=== PATIENT | male | born 1945 ===

== ENCOUNTER → 2019-07-12 11:05 | Outpatient (CLI) | payer MEDICARE, SELFPAY ==
--- NOTE | 2019-07-12 | DI.MRI.S_ITS ---
PROCEDURE: MR CERVICAL SPINE WO CON INDICATIONS: Cervicalgia TECHNIQUE: Noncontrast sagittal T1 spin echo and T2 fast spin echo, sagittal STIR, foraminal oblique sagittal T2 fast spin echo, and axial gradient echo or T2 fast spin echo through the cervical spine. COMPARISON: None. FINDINGS: Image quality: Excellent. Alignment and Curvature: Straightening of the normal lordotic curvature. Bone Marrow: No acute fracture identified. Multilevel degenerative endplate sclerosis and spurring. Diffuse facet arthropathy. Spinal Cord: Mild T2 hyperintensity involving the cord at the level of C3-C4 which is probably degenerative/chronic myelomalacia given the appearance described below No cerebellar tonsillar herniation. Paraspinous Soft Tissues: No paravertebral masses. Prevertebral soft tissues are normal in thickness. C2-C3: Mild central canal narrowing. Mild right foraminal stenosis. Severe left foraminal narrowing with nerve root compression. C3-C4: Severe central canal stenosis. Severe bilateral foraminal narrowing with nerve root compression. C4-C5: Moderate to severe central canal narrowing. Severe bilateral foraminal stenosis with nerve root compression C5-C6: Mild central canal narrowing. Severe right foraminal stenosis or nerve root compression. On the moderate left foraminal narrowing C6-C7: Mild central canal narrowing. Severe right foraminal stenosis with nerve root compression. Mild left foraminal narrowing C7-T1: Mild central canal narrowing. Severe right foraminal stenosis with nerve root compression. Mild-moderate left foraminal narrowing with slight nerve root compression IMPRESSION: Severe cervical spondylosis and facet arthropathy. Straightening of the normal lordotic curvature. Severe C3-C4 canal stenosis Numerous, bilateral foraminal stenoses as detailed above by spinal level Dictated by: Alex Castillo M.D. on 07/12/2019 at 12:23 Approved by: Alex Castillo M.D. on 07/12/2019 at 12:30
== END ==
PROVIDERS: Visit Provider Orthopaedic Surgery
DX: M54.2 Cervicalgia (principal); M48.02 Spinal stenosis, cervical region; M47.812 Spondylosis without myelopathy or radiculopathy, cervical region
CPT/HCPCS: 72141

== ENCOUNTER → 2019-09-18 08:17 | Outpatient (CLI) | payer MEDICARE, SELFPAY ==
--- NOTE | 2019-09-18 | DI.MRI.S_ITS ---
PROCEDURE: MR LUMBAR SPINE WO/W CON INDICATIONS: Spinal stenosis, lumbar region TECHNIQUE: Noncontrast sagittal T1 spin echo and T2 fast spin echo, sagittal STIR, axial T1 and T2 fast spin echo through the lumbar spine. In cases with scoliosis, additional coronal T2 fast spin echo may be performed. After the administration of contrast, sagittal and axial T1 spin echo with fat saturation through the lumbar spine. COMPARISON: None. FINDINGS: Image quality: Diagnostic, with note made of motion artifact. Alignment and curvature: There is moderate levoconvex lumbar scoliosis. Marrow: Marrow is of normal overall signal. Remote appearing compression deformities are seen at T11, L1, and L5. Vertebroplasty cement can be seen within the left aspect of the L1 and L5 vertebral bodies. No acute vertebral body compression fractures. No suspicious marrow enhancement. Spinal cord: Conus medullaris terminates at the L1 level. Visualized spinal cord demonstrates normal signal, without suspicious enhancement. Paraspinous soft tissues: No paravertebral masses or abnormal enhancement. A mild degree of postoperative fluid can be seen within the postoperative bed. To the limits of this study, no abnormal rim enhancement is seen to suggest abscess. Extensive postoperative changes are seen, with bilateral pedicle screws at the L2-L4 levels. Vertical fixation rods are seen. Disc spacers are seen at L2-L3 and L3-L4. There is associated susceptibility artifact. There has been removal of portions of the posterior elements. T12-L1: The disc height is well-preserved. Loss of disc signal is seen at this level. Bridging endplate osteophytes are seen. Moderate generalized disc bulge is seen. Mild facet joint hypertrophy is seen. There is moderate right-sided and no significant left-sided neural foraminal narrowing seen. No significant central canal narrowing is seen. L1-L2: The disc height is well-preserved. Loss of disc signal is seen at this level. Mild to moderate disc bulge is seen. Moderate facet joint hypertrophy is seen. There is moderate to severe right-sided and moderate left-sided neural foraminal narrowing seen. [id number] central canal narrowing is seen. L2-L3: Postoperative changes are seen at this level. There is moderate right-sided and no left-sided neural foraminal narrowing seen. No central canal narrowing is seen. L3-L4: There are postoperative changes at this level. Mild to moderate disc bulge is seen. Moderate to severe bilateral neural foraminal narrowing can be seen. No central canal narrowing is seen. L4-L5: Mild loss of disc height is seen. Loss of disc signal is seen. Moderate disc bulge is seen, which is eccentric to the left. Moderate facet joint hypertrophy is seen. There is moderate to severe left-sided and moderate right-sided neural foraminal narrowing seen. There is a degree of compression seen upon the exiting left L4 nerve root. Moderate central canal narrowing is seen. L5-S1: Mild to moderate disc bulge is seen. Mild to moderate facet hypertrophy is seen. There is moderate left-sided and no right-sided neural foraminal narrowing seen. Mild central canal narrowing is seen. IMPRESSION: Unremarkable L2-L4 postoperative change. Fluid can be seen within the postoperative bed, which is likely within normal limits for postoperative fluid. No abnormal rim enhancement can be seen to suggest abscess. No abnormal enhancement is seen. Remote appearing compression deformities are seen at T11, L1, and L5. Vertebroplasty cement can be seen on the left side at L1 and at L5. Multiple levels of lumbar spine degenerative change are seen, which are overall most prominent at the L4-L5 level. Dictated by: Carl Wright M.D. on 09/18/2019 at 11:19 Approved by: Carl Wright M.D. on 09/18/2019 at 11:27
== END ==
PROVIDERS: PCP Physician Assistant; Referring Provider Neurological Surgery; Visit Provider Neurological Surgery
DX: M48.062 Spinal stenosis, lumbar region with neurogenic claudication (principal); M41.86 Other forms of scoliosis, lumbar region; M47.816 Spondylosis without myelopathy or radiculopathy, lumbar region; Z98.890 Other specified postprocedural states
CPT/HCPCS: 72158; A9579

== ENCOUNTER → 2019-10-31 09:50 | Outpatient (CLI) | payer MEDICARE, SELFPAY ==
--- NOTE | 2019-10-31 | DI.RAD.S_ITS ---
PROCEDURE: XR CERVICAL SPINE 1V INDICATIONS: s/p cervical lumbar fusions TECHNIQUE: Single lateral view of the cervical spine acquired. COMPARISON: [facility], MR, MR CERVICAL SPINE WO CON, 07/12/2019, 11:11. FINDINGS: Bones: No fractures or dislocations to the T1 level. No suspicious bony lesions. Prior spine fusion from C3-C7 is noted, not previously present on MR scanning 07/12/19. Expected positioning of anterior fusion plate and screws and interbody disc spacers. Soft tissues: No prevertebral soft tissue swelling. IMPRESSION: Postoperative changes along the cervical spine include anterior fusion plate in and interbody disc spacers from C3-C7. Normal alignment established. Dictated by: Jeremías Menezes M.D. on 10/31/2019 at 10:48 Approved by: Jeremías Menezes M.D. on 10/31/2019 at 10:49
--- NOTE | 2019-10-31 | DI.RAD.S_ITS ---
PROCEDURE: XR LUMBAR SPINE 1V INDICATIONS: s/p cervical lumbar fusions TECHNIQUE: 1 lateral view of the lumbar spine were acquired. COMPARISON: [facility] [place], [place], XR LUMBAR SPINE WITH OLBIQUES PLUS FLEXION EXTENSION, 07/04/2018, 13:57. [facility], MR, MR LUMBAR SPINE WO/W CON, 09/18/2019, 8:42. FINDINGS: Bones: 5 [id number] vertebrae are present. There is normal bony alignment. 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 Bone cement has been previously present at L5, and also present at L1. No suspicious bony lesions. No change in postoperative devices including transverse pedicle screws and vertical fixation rods crossing from L2-L4. Soft tissues: Overlying bowel gas pattern is normal. No suspicious soft tissue calcifications. IMPRESSION: Stable postoperative changes with reference to recent MR LS spine 09/18/19, no new compression fracture found. Dictated by: Jeremías Menezes M.D. on 10/31/2019 at 10:44 Approved by: Jeremías Menezes M.D. on 10/31/2019 at 10:48
== END ==
PROVIDERS: PCP Physician Assistant; Referring Provider Neurological Surgery; Visit Provider Neurological Surgery
DX: M80.88XS Other osteoporosis with current pathological fracture, vertebra(e), sequela (principal); Z98.1 Arthrodesis status; Z98.890 Other specified postprocedural states
CPT/HCPCS: 72020